=== PATIENT | male | born 1980 | race Caucasian/White ===

== ENCOUNTER → 2019-09-15 | Outpatient (CLI) | payer OTHER ==
[~2019-09-15] MED LIST: BUPR15TA PO; BUSP30TA PO; DEPA500T2 PO; HYDR-3644 PO; HYDR-3715 PO; KLON0.5T PO; LYRI150C PO; NAPR-837 PO; NICO21DI26 EXT; REME30TA PO; REME45TA PO; SOMA350T PO; STRA18CA PO; TRAZ-252 PO; VICO5TAB PO; ambien
== END ==
LOC: M LAB 11:53
PROVIDERS: ATTEND Family Medicine Addiction Medicine
DX: F11.21 Opioid dependence, in remission (principal)

== ENCOUNTER → 2019-11-25 | Outpatient (REF) | payer OTHER, MEDICAID | LOC: M LAB REF 17:06 | PROVIDERS: ATTEND Family Medicine Addiction Medicine | DX: F11.21 Opioid dependence, in remission (principal) ==